=== PATIENT | female | born 2000 ===

== ENCOUNTER 2021-12-23 16:53 | Emergency (ER) | payer OTHER ==
[2021-12-23 17:00] VITALS: BP 123/79; TEMP 99.3
[2021-12-23 17:36] VITALS: PULSE 100
== END 2021-12-23 17:40 | disposition home or self-care (01) ==
LOC: COL.ER 16:53
DX: S91.202A Unspecified open wound of left great toe with damage to nail, initial encounter (principal); Z91.040 Latex allergy status; Z28.310 Unvaccinated for COVID-19; W01.0XXA Fall on same level from slipping, tripping and stumbling without subsequent striking against object, initial encounter

== ENCOUNTER 2022-01-21 11:56 | Emergency (ER) | payer OTHER ==
[~2022-01-21] VITALS: Ht 162.6 cm; Wt 81.8 kg
[2022-01-21 12:15] VITALS: TEMP 98.1
[2022-01-21] MEDS ORDERED: PRENATAL TABLET PO (12:21)
[2022-01-21 12:58] LABS: HEMATOCRIT 37.1 % (37.0-47.0); HEMOGLOBIN 12.6 g/dl (12.5-16.0); MEAN CELL VOLUME 86 fl (80.0-100.0); MEAN CORPUSCULAR HEMOGLOBIN 29 pg (27-31); MEAN CORPUSCULAR HGB CONC 34 g/dl (33.0-37.0); MEAN PLATELET VOLUME 10.4 fl (7.4-10.4); PLATELET COUNT 207 K/mm3 (130-400); RED BLOOD COUNT 4.31 M/mm3 (4.10-5.30); REDCELL DISTRIBUTION WIDTH-CV 12.4 % (11.5-14.5)
[2022-01-21 13:14] LABS: ALBUMIN 3.8 gm/dL (3.5-5.0); BILIRUBIN,TOTAL 0.3 mg/dL (0.2-1.2); CALCIUM 9.5 mg/dL (8.4-10.2); CREATININE, serum 0.82 mg/dL (0.57-1.11); POTASSIUM 4.2 mmol/L (3.5-4.5); TOTAL PROTEIN 7.1 gm/dL (6.2-8.1)
[2022-01-21 15:27] VITALS: BP 132/94; PULSE 85
== END 2022-01-21 15:28 | disposition home or self-care (01) ==
LOC: COL.ER 11:56
PROVIDERS: Emergency Medicine
DX: O20.9 Hemorrhage in early pregnancy, unspecified (principal); Z91.040 Latex allergy status; Z3A.00 Weeks of gestation of pregnancy not specified; Z28.310 Unvaccinated for COVID-19

== ENCOUNTER → 2022-01-22 | Outpatient (CLI) | payer OTHER ==
[~2022-01-22] MED LIST: PRENATAL TABLET PO
== END ==
LOC: COL.RAD 08:06
DX: O26.851 Spotting complicating pregnancy, first trimester (principal); Z3A.01 Less than 8 weeks gestation of pregnancy

== ENCOUNTER 2022-08-28 12:35 | Outpatient (CLI) | payer OTHER ==
[~2022-08-28] VITALS: Ht 162.6 cm; Wt 92.7 kg
[~2022-08-28 12:35] MED LIST changes: +COLACE 100100 MG/CAP PO; +UNISOM25 MG PO
--- NOTE | 2022-08-28 12:40 | NUR ---
PT ARRIVES VIA WHEELCHAIR TO UNIT C/O LOWER ABDOMINAL PRESSURE. DENIES LOF, REPORTS IRREGULAR CONTRACTIONS, AND REPORTS POSITIVE MOVEMENT. PT DOCTORS WITH AT [facility]. NO RECORDS AVAILABLE. INITIAL TRACING EFM CATEGORY 1 UPON ARRIVAL. NO CONTRACTIONS ON TOCO OR WITH PALPATION.
[2022-08-28 13:15] VITALS: BP 106/63; PULSE 100; TEMP 98.1
[2022-08-28] MEDS ORDERED: RT ALBUTER2.5 MG/0.5 (13:19)
[2022-08-28] MEDS ORDERED: NATURAL IRON65 MG (13:19)
[2022-08-28 13:45] VITALS: PULSE 94
--- NOTE | 2022-08-28 14:00 | NUR ---
ALL DC INSTRUCTIONS REVIEWED AND UNDERSTOOD. PT EDUCATED TO FOLLOW UP WITH HER PRIMARY OB AND CARE TEAM AT [facility], THEY HAVE ALL OF HER RECORDS AVAILABLE. PT AGREEABLE. DENIES FURTHER QUESTIONS OR CONCERNS. AMBULATORY FROM UNIT IN STABLE CONDITION.
== END 2022-08-28 14:00 | disposition home or self-care (01) ==
LOC: LDRO 12:35
DX: Z34.93 Encounter for supervision of normal pregnancy, unspecified, third trimester (principal); Z3A.37 37 weeks gestation of pregnancy